=== PATIENT | female | born 1995 | race African-American/Black ===

== ENCOUNTER 2025-01-06 10:38 | Emergency (ER) | payer OTHER ==
[~2025-01-06] VITALS: Ht 175.3 cm; Wt 117.9 kg
[2025-01-06 10:43] VITALS: BP 109/71; O2SAT 99
[2025-01-06] MEDS ORDERED: ACETAMINOPHEN 500 MG TABLET ONE (11:07)
[2025-01-06] MEDS ORDERED: IBUPROFEN 200 MG TABLET ONE (11:07)
[2025-01-06] MEDS: IBUPROFEN 200 MG TABLET PO ONE (11:11)
[2025-01-06] MEDS: ACETAMINOPHEN 500 MG TABLET PO ONE (11:11)
== END 2025-01-06 11:17 | disposition home or self-care (01) ==
LOC: ER 10:38
DX: S86.811A Strain of other muscle(s) and tendon(s) at lower leg level, right leg, initial encounter (principal); W01.0XXA Fall on same level from slipping, tripping and stumbling without subsequent striking against object, initial encounter; Y93.89 Activity, other specified; Y92.89 Other specified places as the place of occurrence of the external cause; Y99.8 Other external cause status
CPT/HCPCS: A4606; A4663; A9150